=== PATIENT | female | born 1965 | race Caucasian/White ===

== ENCOUNTER 2024-06-10 07:35 | Outpatient (CLI) | payer OTHER ==
[2024-06-10] MEDS ORDERED: Iopamidol 370 76% 100 ML VIAL ONE (11:12)
== END 2024-06-10 07:36 | disposition home or self-care (01) ==
LOC: CT 07:35
PROVIDERS: ATTEND Internal Medicine
DX: C20 Malignant neoplasm of rectum (principal); K62.89 Other specified diseases of anus and rectum
CPT/HCPCS: 71260; 74177; Q9967

== ENCOUNTER 2024-06-15 09:30 | Outpatient (CLI) | payer OTHER | END 2024-06-15 09:31 | disposition home or self-care (01) | LOC: PET 09:30 | PROVIDERS: ATTEND Radiology Radiation Oncology | DX: C21.0 Malignant neoplasm of anus, unspecified (principal) | CPT/HCPCS: 78815; A9552 ==